=== PATIENT | male | born 1975 | race American Indian/Alaskan Native ===

== ENCOUNTER 2021-04-28 08:29 | Emergency (ER) | payer SELFPAY ==
[2021-04-28 08:37] VITALS: BP 124/67
--- NOTE | 2021-04-28 11:01 | Emergency Department Report ---
ED Extremity Problem HPI - General Chief complaint: Extremity Injury, Upper Stated complaint: ELBOW EDEMA Time Seen by Provider: 04/28/21 10:56 Source: patient Mode of arrival: Ambulatory Limitations: No Limitations - History of Present Illness Initial comments: Patient is a 45-year-old male presents emergency room complaints of left elbow edema that began a couple days ago. Patient states that he works on [employer]. He states he was propping himself on his left elbow for most of the day. He states later on that night he began having elbow pain and swelling. He denies any fall or injury or trauma. He denies any redness, warmth, fever, vomiting, chills, abrasion, laceration. No past medical history. No allergies to medications. He states that the swelling and pain will improve but then once he works when he gets home from work after using it all day that is when he has the swelling and pain. - Related Data Previous Rx's Medication Instructions Recorded Last Taken Type Naproxen 375 mg PO BID PRN #20 tablet 04/28/21 Unknown Rx predniSONE [Deltasone] 40 mg PO QDAY 5 Days #10 tab 04/28/21 Unknown Rx Allergies Allergy/AdvReac Type Severity Reaction Status Date / Time No Known Allergies Allergy Verified 04/28/21 08:37 ED Review of Systems ROS: Stated complaint: ELBOW EDEMA Other details as noted in HPI Comment: All other systems reviewed and negative ED Past Medical Hx - Medications Home Medications: Home Medications Medication Instructions Recorded Confirmed Last Taken Type Naproxen 375 mg PO BID PRN #20 tablet 04/28/21 Unknown Rx predniSONE [Deltasone] 40 mg PO QDAY 5 Days #10 tab 04/28/21 Unknown Rx ED Physical Exam - General Limitations: No Limitations General appearance: alert, in no apparent distress - Head Head exam: Present: atraumatic, normocephalic - Eye Eye exam: Present: normal appearance - ENT ENT exam: Present: mucous membranes moist - Respiratory Respiratory exam: Absent: respiratory distress, accessory muscle use - Extremities Exam Extremities exam: Present: other (mild edema present to the region of the left olecranon, no erythema, no ttp, FROM of the LUE, neurovascularly intact) - Neurological Exam Neurological exam: Present: alert, oriented X3 - Psychiatric Psychiatric exam: Present: normal affect, normal mood - Skin Skin exam: Present: warm, dry, intact ED Course Vital Signs 04/28/21 08:32 Temperature 98.8 F Pulse Rate 62 Respiratory 18 Rate Blood Pressure 124/67 [Left] O2 Sat by Pulse 98 Oximetry ED Medical Decision Making - Medical Decision Making Patient is a 45-year-old male presents emergency room complaints of left elbow edema that began a couple days ago. Patient states that he works on [employer]. He states he was propping himself on his left elbow for most of the day. He states later on that night he began having elbow pain and swelling. He denies any fall or injury or trauma. He denies any redness, warmth, fever, vomiting, chills, abrasion, laceration. No past medical history. No allergies to medicat ions. He states that the swelling and pain will improve but then once he works when he gets home from work after using it all day that is when he has the swelling and pain. Vitals are normal. On exam:mild edema present to the region of the left olecranon, no erythema, no ttp, FROM of the LUE, neurovascularly intact. Symptoms and examination appear likely consistent with olecranon bursitis. No clinical signs of septic joint or cellulitis or infection at this time. Given prescription for medication and given orthopedic follow-up. Advised patient please take medication as prescribed. Ice for 15 minutes at a time, rest, do not wear Josh bandage too tightly do not wear at night while sleeping. Follow-up with orthopedic doctor. Return to emergency room for any new or worsening symptoms. Critical care attestation.: If time is entered above; I have spent that time in minutes in the direct care of this critically ill patient, excluding procedure time. ED Disposition Clinical Impression: Olecranon bursitis of left elbow Disposition: HOME / SELF CARE / HOMELESS Is pt being admited?: No Does the pt Need Aspirin: No Condition: Stable Instructions: Elbow Bursitis Additional Instructions: please take medication as prescribed. Ice for 15 minutes at a time, rest, do not wear Josh bandage too tightly do not wear at night while sleeping. Follow-up with orthopedic doctor. Return to emergency room for any new or worsening symptoms. Prescriptions: predniSONE [Deltasone] 40 mg PO QDAY 5 Days #10 tab Naproxen 375 mg PO BID PRN #20 tablet PRN Reason: pain Referrals: SMITA BARAJAS MD [Staff Physician] - 2-3 Days [facility] [Provider Group] - 2-3 Days Forms: Work/School Release Form(ED) Time of Disposition: 11:01 Print Language: CROATIAN
== END 2021-04-28 11:30 | disposition home or self-care (01) ==
LOC: ED 08:29
DX: M70.22 Olecranon bursitis, left elbow (principal); Z79.899 Other long term (current) drug therapy
CPT/HCPCS: 99281